=== PATIENT | female | born 1950 | race Caucasian/White ===

== ENCOUNTER 2018-01-26 07:54 | Day surgery (SDC) | payer MEDICARE ==
[~2018-01-26] VITALS: Ht 167.6 cm; Wt 88.5 kg
[~2018-01-26 07:54] MED LIST: CALCI17 PO; CENTRUM SILVER1 TAB PO; COQ1030 MG PO; FISH OIL1000 MG PO; PROBIOTI2 PO
[2018-01-26 11:02] VITALS: BP 156/87
== END 2018-01-26 11:15 | disposition home or self-care (01) ==
LOC: ENDO 07:54 → EDBD 19:30 → ENDO 19:30
PROVIDERS: ATTEND Internal Medicine Gastroenterology
PROC: 0DJD8ZZ Inspection of Lower Intestinal Tract, Via Natural or Artificial Opening Endoscopic (ICD-10-PCS; principal; 2018-01-26)
DX: Z12.11 Encounter for screening for malignant neoplasm of colon (principal); K21.9 Gastro-esophageal reflux disease without esophagitis; K64.4 Residual hemorrhoidal skin tags; K57.30 Diverticulosis of large intestine without perforation or abscess without bleeding; Z80.0 Family history of malignant neoplasm of digestive organs